=== PATIENT | female | born 1955 | race African-American/Black ===

== ENCOUNTER 2022-09-12 18:15 | Inpatient (IN) | payer OTHER ==
[~2022-09-12] VITALS: Ht 165.1 cm; Wt 239.0 kg
[~2022-09-12 18:15] MED LIST: ATENOLOL; BENADRYL; FLEXERIL; LASIX; LISNOPRIL; NORCO; PROZAC; XANAX
[2022-09-12] MEDS ORDERED: DEXAMETHASONE 4MG/ML 1ML VIAL IV ONE (18:30)
[2022-09-12] MEDS ORDERED: IPRATROPIUM/ALBUTEROL 0.5-3(2.5)MG/3ML NEB HHN ONE (18:30)
[2022-09-12 18:44] LABS: BASOPHILS % 0.3 % (0.0-2.0); EOSINOPHILS % 2.1 % (0.0-5.0); HEMATOCRIT. 29.2 % (36.0-48.0); HEMOGLOBIN. 9.1 g/dL (12.0-16.0); LYMPHOCYTES % 14.7 % (20.0-50.0); MEAN CORPUSCULAR HEMOGLOBIN 24.9 pg (28.0-32.0); MEAN CORPUSCULAR VOLUME 79.7 fL (81.0-99.0); MEAN PLATELET VOLUME 8.2 fl (7.4-10.4); MONOCYTES % 8.2 % (2.0-8.0); NEUTROPHILS % 74.7 % (40.0-76.0); PLATELET 262 x1000/uL (130-400); RED BLOOD CELL COUNT 3.66 mill/uL (4.2-5.4); RED CELL DISTRIBUTION WIDTH 19.7 % (11.6-14.6)
[2022-09-12 18:55] LABS: CHLORIDE 91 mEq/L (98-107)
[2022-09-12 19:06] LABS: BG BASE EXCESS 1.4 mmol/L (-2.0-2.0); BG CARBOXYHEMOGLOBIN 0.8 % (0.5-1.5); BG FRACTION INSPIRED OXYGEN 100; BG HCO3 ACT 30.5 mmol/L (22.0-26.0); BG METHEMOGLOBIN 0.2 % (0.0-1.5); BG PCO2 75.7 mmHg (35.0-45.0); BG PH 7.223 (7.350-7.450); BG PO2 173.4 mmHg (75.0-100.0); BG SAMPLE SITE RIGHT RADIAL; BG TOTAL HEMOGLOBIN 10.5 g/dL (12.0-18.0); BG TOTAL RESPIRATORY RATE 25 b/min; BG VENT MODE MASK - BIPAP
[2022-09-12] MEDS ORDERED: CEFTRIAXONE 1GM PREMIX 50 ML IV NR (19:15)
[2022-09-12] MEDS ORDERED: AZITHROMYCIN 500MG/250ML 250 ML IV NR (19:15)
[2022-09-12] MEDS ORDERED: IPRATROPIUM/ALBUTEROL 0.5-3(2.5)MG/3ML NEB HHN NR (20:45)
[2022-09-12 20:46] LABS: BG CARBOXYHEMOGLOBIN 0.6 % (0.5-1.5); BG DEOXYHEMOGLOBIN 3.3 % (0.0-5.0); BG FRACTION INSPIRED OXYGEN 50; BG HCO3 ACT 33.3 mmol/L (22.0-26.0); BG METHEMOGLOBIN 0.3 % (0.0-1.5); BG OXYGEN SATURATION 96.7 % (92.0-98.5); BG OXYHEMOGLOBIN 95.8 % (94.0-97.0); BG PCO2 72.4 mmHg (35.0-45.0); BG PO2 97.5 mmHg (75.0-100.0); BG SAMPLE SITE RIGHT RADIAL; BG TOTAL HEMOGLOBIN 10.2 g/dL (12.0-18.0); BG VENT MODE MASK - BIPAP
[2022-09-13 11:20] LABS: BG BASE EXCESS 4.8 mmol/L (-2.0-2.0); BG CARBOXYHEMOGLOBIN 0.6 % (0.5-1.5); BG DEOXYHEMOGLOBIN 6.5 % (0.0-5.0); BG HCO3 ACT 31.5 mmol/L (22.0-26.0); BG METHEMOGLOBIN 0.4 % (0.0-1.5); BG OXYGEN SATURATION 93.4 % (92.0-98.5); BG OXYHEMOGLOBIN 92.5 % (94.0-97.0); BG PCO2 58.2 mmHg (35.0-45.0); BG PH 7.351 (7.350-7.450); BG PO2 68.7 mmHg (75.0-100.0); BG SAMPLE SITE RIGHT BRACHIAL; BG TOTAL HEMOGLOBIN 10.4 g/dL (12.0-18.0); BG VENT MODE MASK - BIPAP
[2022-09-13] MEDS: FUROSEMIDE 40MG/4ML VIAL IVP SCH (11:45)
[2022-09-13] MEDS: METHYLPREDNISOLONE SOD SUCC 125 MG/2 ML VIAL IV SCH ×3 (11:45→23:29)
[2022-09-13] MEDS ORDERED: ONDANSETRON HCL 4MG/2ML INJ IV PRN (12:15)
[2022-09-13] MEDS ORDERED: CEFTRIAXONE 1GM PREMIX 50 ML IV SCH (12:15)
[2022-09-13] MEDS ORDERED: ACETAMINOPHEN 325MG TABLET PO PRN (12:15)
[2022-09-13] MEDS: ALBUTEROL (0.083%) 2.5MG/3ML NEB HHN SCH ×2 (14:05→20:13)
[2022-09-13] MEDS: IPRATROPIUM BROMIDE (0.02%) 0.5MG/2.5ML NEB HHN SCH ×2 (14:05→20:12)
[2022-09-13 17:24] VITALS: BP 165/89
[2022-09-13 18:00] VITALS: BP 139/80
[2022-09-13] MEDS ORDERED: PNEUMOCOCCAL 23-VAL P-SAC VAC 0.5 ML IM ONE (18:30)
[2022-09-13 20:00] VITALS: BP 142/87
[2022-09-13] MEDS ORDERED: FAMOTIDINE 20MG TABLET PO SCH (21:00)
[2022-09-13] MEDS ORDERED: OMEP40CA20 PO (21:17)
[2022-09-13] MEDS ORDERED: ATOR40TA70 PO (21:17)
[2022-09-13] MEDS ORDERED: METO-539 PO (21:17)
[2022-09-13] MEDS ORDERED: FURO40TA5 PO (21:17)
[2022-09-13] MEDS ORDERED: POTA-185 PO (21:17)
[2022-09-13] MEDS ORDERED: AMOX-494 PO (21:17)
[2022-09-13] MEDS ORDERED: BENZ100C86 PO (21:17)
[2022-09-13 22:00] VITALS: BP 154/82
[2022-09-13] MEDS ORDERED: DICL100G31 TP (22:40)
[2022-09-13] MEDS ORDERED: AMLO10TA80 PO (22:40)
[2022-09-13] MEDS ORDERED: AZEL137S7 (22:40)
[2022-09-13] MEDS ORDERED: DULO30CA52 PO (22:40)
[2022-09-13] MEDS ORDERED: FLUT1BLS10 IH (22:40)
[2022-09-13] MEDS ORDERED: HYDR-4009 PO (22:40)
[2022-09-13] MEDS ORDERED: GABA-529 PO (22:40)
[2022-09-13] MEDS ORDERED: ALBUTEROL (22:40)
[2022-09-13] MEDS ORDERED: DOCU-150 MT (22:57)
[2022-09-13] MEDS ORDERED: ASPI-1497 PO (22:57)
[2022-09-13] MEDS: CEFTRIAXONE 1GM PREMIX 50 ML IV SCH (22:58)
[2022-09-13] MEDS ORDERED: METOPROLOL TARTRATE 50MG TABLET PO SCH (23:00)
[2022-09-13] MEDS: METOPROLOL TARTRATE 25MG TABLET PO SCH (23:30)
[2022-09-13] MEDS: DULOXETINE HCL 30MG DR CAPSULE PO SCH (23:30)
[2022-09-13] MEDS: GABAPENTIN 100MG CAPSULE PO SCH (23:31)
[2022-09-14] VITALS (13 sets, daily range): BP systolic 116–146; BP diastolic 67–84
[2022-09-14] MEDS: ALBUTEROL (0.083%) 2.5MG/3ML NEB HHN SCH ×2 (02:43→08:44)
[2022-09-14] MEDS: IPRATROPIUM BROMIDE (0.02%) 0.5MG/2.5ML NEB HHN SCH ×5 (02:43→20:44)
[2022-09-14] MEDS: METHYLPREDNISOLONE SOD SUCC 125 MG/2 ML VIAL IV SCH ×3 (05:55→18:07)
[2022-09-14] MEDS ORDERED: OMEPRAZOLE 20MG CAPSULE EXTENDED RELEASE PO SCH (06:30)
[2022-09-14] MEDS ORDERED: HYDROCODONE/ACETAMINOPHEN 5/325MG TABLET PO PRN (07:15)
[2022-09-14] MEDS ORDERED: NALOXONE HCL 0.4MG/ML VIAL IV PRN (07:30)
[2022-09-14] MEDS ORDERED: POTASSIUM CHLORIDE PO SCH (09:00)
[2022-09-14] MEDS ORDERED: POTASSIUM CHLORIDE 20MEQ TABLET SR PO SCH (09:00)
[2022-09-14] MEDS ORDERED: AMLODIPINE 10MG TABLET PO SCH (09:00)
[2022-09-14] MEDS ORDERED: MEDICATION NOT ON FORMULARY EA (Omeprazole 1 CAP) PO SCH (09:00)
[2022-09-14] MEDS ORDERED: METOPROLOL TARTRATE 25MG TABLET PO SCH (09:00)
[2022-09-14] MEDS: FUROSEMIDE 40MG/4ML VIAL IVP SCH (09:39)
[2022-09-14] MEDS: DULOXETINE HCL 30MG DR CAPSULE PO SCH ×2 (09:40→18:07)
[2022-09-14] MEDS: METOPROLOL TARTRATE 25MG TABLET PO SCH (09:41)
[2022-09-14] MEDS: GABAPENTIN 100MG CAPSULE PO SCH ×3 (09:41→18:07)
[2022-09-14] MEDS ORDERED: IPRATROPIUM BROMIDE (0.02%) 0.5MG/2.5ML NEB HHN PRN (11:15)
[2022-09-14] MEDS ORDERED: DEXTROSE 50% WATER 50ML SYRINGE IV PRN (11:45)
[2022-09-14] MEDS ORDERED: FUROSEMIDE 40MG/4ML VIAL IVP NR (12:30)
[2022-09-14] MEDS ORDERED: ENOXAPARIN 40MG/0.4ML SYR SUBCUT SCH (12:30)
[2022-09-14] MEDS: INSULIN LISPRO 100 UNITS/ML SUBCUT SCH ×3 (13:52→21:02)
[2022-09-14 14:27] LABS: CLARITY URINE CLEAR (CLEAR); COLOR URINE YELLOW (YELLOW); KETONES URINE NEGATIVE (NEGATIVE); LEUKOCYTE ESTERASE URINE NEGATIVE (NEGATIVE); NITRITE URINE NEGATIVE (NEGATIVE); OCCULT BLOOD URINE TRACE (NEGATIVE); PROTEIN URINE 1+ (NEGATIVE); SPECIFIC GRAVITY URINE 1.012 (1.005-1.030); UROBILINOGEN URINE 0.2 E.U./dL (0.2-1.0)
[2022-09-14 14:50] LABS: *AMPHETAMINES SCREEN URINE NEGATIVE (NEGATIVE); *BARBITURATES SCREEN URINE NEGATIVE (NEGATIVE); *BENZODIAZEPINES SCREEN URINE NEGATIVE (NEGATIVE); *COCAINE SCREEN URINE NEGATIVE (NEGATIVE); CANNABINOID URINE SCREEN NEGATIVE (NEGATIVE); METHADONE URINE SCREEN NEGATIVE (NEGATIVE); OPIATES URINE SCREEN PRESUMTIVE POSITIVE (NEGATIVE); PHENCYCLIDINE URINE SCREEN NEGATIVE (NEGATIVE)
[2022-09-14] MEDS ORDERED: CLONIDINE 0.1MG TABLET PO PRN (15:15)
[2022-09-14] MEDS ORDERED: CLONIDINE 0.2MG TABLET PO PRN (15:15)
[2022-09-14 15:53] LABS: HEMATOCRIT. 29.8 % (36.0-48.0); HEMOGLOBIN. 9.1 g/dL (12.0-16.0); MEAN CORPUSCULAR HEMOGLOBIN 24.4 pg (28.0-32.0); MEAN CORPUSCULAR VOLUME 80.1 fL (81.0-99.0); MEAN PLATELET VOLUME 8.2 fl (7.4-10.4); PLATELET 239 x1000/uL (130-400); RED BLOOD CELL COUNT 3.73 mill/uL (4.2-5.4); RED CELL DISTRIBUTION WIDTH 19.7 % (11.6-14.6)
[2022-09-14] MEDS: BLOOD SUGAR DIAGNOSTIC STRIP TEST SCH ×2 (16:07→21:01)
[2022-09-14] MEDS: CEFTRIAXONE 1GM PREMIX 50 ML IV SCH (20:04)
[2022-09-14] MEDS ORDERED: ATORVASTATIN CALCIUM 40MG TABLET PO SCH (21:00)
[2022-09-14 22:22] LABS: PLATELET ESTIMATE NORMAL
[2022-09-15] VITALS: BP 133/87
== END 2022-09-15 00:10 | disposition short-term general hospital (02) | DRG 871 ==
LOC: ER 18:26 → MICUSO 20:40 → MICUNO 09-13 18:32
PROVIDERS: ADMIT Internal Medicine; ATTEND Internal Medicine
PROC: 5A09457 Assistance with Respiratory Ventilation, 24-96 Consecutive Hours, Continuous Positive Airway Pressure (ICD-10-PCS; principal; 2022-09-12)
PROC: 5A0935A Assistance with Respiratory Ventilation, Less than 24 Consecutive Hours, High Flow/Velocity Cannula (ICD-10-PCS; 2022-09-14)
DX: A41.9 Sepsis, unspecified organism (principal); E43 Unspecified severe protein-calorie malnutrition; J18.9 Pneumonia, unspecified organism; J96.01 Acute respiratory failure with hypoxia; J96.02 Acute respiratory failure with hypercapnia; I50.43 Acute on chronic combined systolic (congestive) and diastolic (congestive) heart failure; E66.2 Morbid (severe) obesity with alveolar hypoventilation; E87.1 Hypo-osmolality and hyponatremia; E87.29 Other acidosis; J44.0 Chronic obstructive pulmonary disease with (acute) lower respiratory infection; J44.1 Chronic obstructive pulmonary disease with (acute) exacerbation; Z68.45 Body mass index [BMI] 70 or greater, adult; Z20.822 Contact with and (suspected) exposure to COVID-19; D50.9 Iron deficiency anemia, unspecified; I11.0 Hypertensive heart disease with heart failure; M19.90 Unspecified osteoarthritis, unspecified site; I16.0 Hypertensive urgency; I89.0 Lymphedema, not elsewhere classified; R73.03 Prediabetes; Z90.710 Acquired absence of both cervix and uterus; Z74.01 Bed confinement status; Z99.81 Dependence on supplemental oxygen
CPT/HCPCS: 36415; 36600; 71045; 80048; 80053; 80305; 81003; 82375; 82805; 82962; 83036; 83880; 84145; 84484; 85025; 87426; 90732; 93005; 93306; 93970; 94640; 94660; 99291; C9803; J0456; J0696; J1100; J1650; J1815; J1940; J2930